=== PATIENT | male | born 1995 | race Caucasian/White ===

== ENCOUNTER 2018-04-21 21:05 | Emergency (ER) | payer MEDICAID ==
[~2018-04-21] VITALS: Ht 180.3 cm; Wt 99.8 kg
[2018-04-21 21:22] VITALS: BP 137/96
== END 2018-04-21 23:17 | disposition home or self-care (01) ==
LOC: ER 21:06
DX: A49.02 Methicillin resistant Staphylococcus aureus infection, unspecified site (principal); Z22.322 Carrier or suspected carrier of Methicillin resistant Staphylococcus aureus
CPT/HCPCS: 99281